=== PATIENT | female | born 1940 | race Caucasian/White ===

== ENCOUNTER 2023-05-26 18:32 | Inpatient (IN) | payer MEDICARE, BC ==
[~2023-05-26] VITALS: Ht 144.8 cm; Wt 53.5 kg
[2023-05-26] MEDS: IV NS 0.9% 1,000 ML BAG IV ONE (19:00)
[2023-05-26 19:04] LABS: BASOPHILS # (AUTO) 0.1 K/uL (0.0-0.2); BASOPHILS % (AUTO) 1.1 % (0.0-2.0); EOSINOPHILS # (AUTO) 0.1 K/uL (0.0-0.7); EOSINOPHILS % (AUTO) 1.5 % (0.0-6.0); HEMATOCRIT 35 % (33-45); HEMOGLOBIN 11.8 g/dL (11.5-14.8); LYMPHOCYTES # (AUTO) 0.9 K/uL (0.8-4.8); LYMPHOCYTES % (AUTO) 13.2 % (20.0-44.0); MEAN CORPUSCULAR HEMOGLOBIN 33 PG (26.0-33.0); MEAN CORPUSCULAR HGB CONC 34 g/dl (31.0-36.0); MEAN CORPUSCULAR VOLUME 97 fL (82-100); MONOCYTES # (AUTO) 0.6 K/uL (0.1-1.30); MONOCYTES % (AUTO) 8.6 % (2.0-12.0); NEUTROPHILS # (AUTO) 5.3 K/uL (1.8-8.9); NEUTROPHILS % (AUTO) 75.6 % (43.0-81.0); PLATELET COUNT (AUTO) 132 K/uL (150-450); RED BLOOD CELL COUNT(AUTO) 3.64 MIL/uL (4.0-5.2)
[2023-05-26 19:19] LABS: CALCIUM, SERUM 9.4 mg/dL (8.5-10.1); CARBON DIOXIDE 28 mmol/L (21-32); CHLORIDE 94 mmol/L (98-107); CREATININE 1.1 mg/dL (0.6-1.3); GLUCOSE 127 mg/dL (74-106); POTASSIUM 4.1 mmol/L (3.5-5.1); SODIUM SERUM 130 mmol/L (136-145); UREA NITROGEN, BLOOD 23 mg/dL (7-18)
[2023-05-26 19:25] LABS: ALANINE AMINOTRANSFERASE 9 U/L (12-78); ALBUMIN 3.8 g/dL (3.4-5.0); ALKALINE PHOSPHATASE 44 U/L (46-116); ASPARTATE AMINOTRANSFERASE 15 U/L (15-37); BILIRUBIN,DIRECT 0.1 mg/dL (0.0-0.2); BILIRUBIN,TOTAL 0.4 mg/dL (0.2-1.0); TOTAL PROTEIN, SERUM 7.2 g/dL (6.4-8.2)
[2023-05-26 19:31] LABS: INR 1.07 (0.91-1.10); PARTIAL THROMBOPLASTIN TIME 24.8 SEC (24.3-34.3); PROTHROMBIN TIME 11.3 SECS (9.2-11.1)
[2023-05-26] MEDS ORDERED: MAGNESIUM HYDROXIDE 30 ML UDC PO PRN (22:00)
[2023-05-26] MEDS ORDERED: HYDROCODONE/APAP 5/325MG TABLET PO PRN (22:00)
[2023-05-26] MEDS ORDERED: ACETAMINOPHEN 325 MG TABLET PO PRN (22:00)
[2023-05-26] MEDS ORDERED: Z GUARD REMEDY 4 OZ OINT TP PRN (22:00)
[2023-05-26] MEDS ORDERED: MORPHINE SULFATE INJ 2 MG/ML DISP.SYRIN IV PRN (22:00)
[2023-05-26] MEDS ORDERED: ONDANSETRON HCL/PF 4 MG/2 ML VIAL IVP PRN (22:00)
[2023-05-26] MEDS ORDERED: TEMAZEPAM 15 MG CAPSULE PO PRN (22:00)
[2023-05-26] MEDS ORDERED: MAG HYDROX/AL HYDROX/SIMETH 30 ML UDC PO PRN (22:00)
[2023-05-26 22:30] VITALS: BP_SYST 158; BP_SYST 171; BP_DIAS 92; BP_DIAS 93; TEMP 97.9; O2SAT 98
[2023-05-26] MEDS: IV NS 0.9% 1,000 ML IV PRN (22:59)
[2023-05-27] VITALS: BP 130/75; TEMP 98.4; O2SAT 96
[2023-05-27 07:00] VITALS: BP 184/88; TEMP 98.6; O2SAT 96
[2023-05-27 07:07] LABS: BASOPHILS % (AUTO) 0.3 % (0.0-2.0); EOSINOPHILS # (AUTO) 0.1 K/uL (0.0-0.7); EOSINOPHILS % (AUTO) 1.6 % (0.0-6.0); HEMATOCRIT 33 % (33-45); HEMOGLOBIN 11.3 g/dL (11.5-14.8); LYMPHOCYTES # (AUTO) 0.8 K/uL (0.8-4.8); LYMPHOCYTES % (AUTO) 19.4 % (20.0-44.0); MEAN CORPUSCULAR HEMOGLOBIN 33 PG (26.0-33.0); MEAN CORPUSCULAR HGB CONC 34 g/dl (31.0-36.0); MEAN CORPUSCULAR VOLUME 96 fL (82-100); MONOCYTES # (AUTO) 0.6 K/uL (0.1-1.30); MONOCYTES % (AUTO) 13.3 % (2.0-12.0); NEUTROPHILS # (AUTO) 2.7 K/uL (1.8-8.9); NEUTROPHILS % (AUTO) 65.4 % (43.0-81.0); PLATELET COUNT (AUTO) 117 K/uL (150-450); RED BLOOD CELL COUNT(AUTO) 3.45 MIL/uL (4.0-5.2); RED CELL DISTRIBUTION WIDTH 13.6 % (11.5-15.0); WHITE BLOOD COUNT (AUTO) 4.2 K/uL (4.3-11.0)
[2023-05-27 07:42] LABS: CALCIUM, SERUM 8.3 mg/dL (8.5-10.1); CARBON DIOXIDE 27 mmol/L (21-32); CHLORIDE 104 mmol/L (98-107); CREATININE 0.6 mg/dL (0.6-1.3); GLUCOSE 94 mg/dL (74-106); MAGNESIUM 2.1 mg/dL (1.8-2.4); PHOSPHORUS 3.7 mg/dL (2.5-4.9); POTASSIUM 3.7 mmol/L (3.5-5.1); SODIUM SERUM 137 mmol/L (136-145); UREA NITROGEN, BLOOD 12 mg/dL (7-18)
[2023-05-27 07:53] LABS: CHOLESTEROL 147 mg/dL (<200); HDL CHOLESTEROL 70 mg/dL (40-60); LDL 59 mg/dL (0-99); THYROID STIMULATING HORMONE 1.301 uIU/mL (0.358-3.74); TRIGLYCERIDES 77 mg/dL (30-150)
[2023-05-27] MEDS: PANTOPRAZOLE 40 MG TABLET.DR PO SCH (09:35)
[2023-05-27] MEDS ORDERED: ACET-868 PO (09:56)
[2023-05-27] MEDS ORDERED: FOLI0.4T6 PO (09:56)
[2023-05-27] MEDS ORDERED: CARB1TAB21 PO (09:56)
[2023-05-27] MEDS ORDERED: HYDR-4077 PO ×2 (09:56)
[2023-05-27] MEDS ORDERED: SOLI5TAB7 PO (09:56)
[2023-05-27] MEDS ORDERED: LOSA50TA39 PO (09:56)
[2023-05-27] MEDS ORDERED: POLY15DR40 EACHEYE (09:56)
[2023-05-27] MEDS ORDERED: METH2.5T14 PO (09:56)
[2023-05-27] MEDS ORDERED: CARV25TA2 PO (09:56)
[2023-05-27] MEDS ORDERED: ACETAMINOPHEN 325 MG TABLET PO PRN (11:00)
[2023-05-27] MEDS: hydrALAZINE HCL 50 MG TABLET PO SCH (11:16)
[2023-05-27] MEDS: LOSARTAN POTASSIUM 50 MG TABLET PO SCH (11:16)
[2023-05-27] MEDS: CARVEDILOL 12.5 MG TABLET PO SCH (11:17)
[2023-05-27 11:34] VITALS: BP 166/82; TEMP 98.4; O2SAT 95
[2023-05-27 13:03] LABS: THYROID STIMULATING HORMONE 1.321 uIU/mL (0.358-3.74)
[2023-05-27] MEDS: POLYVINYL ALCOHOL 15 ML BOTTLE EACHEYE SCH (13:46)
[2023-05-27 16:00] VITALS: BP 176/91; TEMP 98.4; O2SAT 99
[2023-05-27 20:21] VITALS: BP 155/88; TEMP 98.4; O2SAT 98
[2023-05-27] MEDS ORDERED: SOLIFENACIN SUCCINATE 5 MG PO SCH (22:00)
[2023-05-28 00:16] VITALS: BP 157/88; TEMP 98.4; O2SAT 96
[2023-05-28] MEDS: hydrALAZINE HCL 50 MG TABLET PO PRN (04:14)
[2023-05-28 04:15] VITALS: BP 184/87; TEMP 98.8; O2SAT 96
[2023-05-28 06:56] LABS: BASOPHILS % (AUTO) 0.3 % (0.0-2.0); EOSINOPHILS # (AUTO) 0.1 K/uL (0.0-0.7); EOSINOPHILS % (AUTO) 1.8 % (0.0-6.0); HEMATOCRIT 35 % (33-45); HEMOGLOBIN 12.3 g/dL (11.5-14.8); LYMPHOCYTES # (AUTO) 0.7 K/uL (0.8-4.8); LYMPHOCYTES % (AUTO) 11.9 % (20.0-44.0); MEAN CORPUSCULAR HEMOGLOBIN 33 PG (26.0-33.0); MEAN CORPUSCULAR HGB CONC 35 g/dl (31.0-36.0); MEAN CORPUSCULAR VOLUME 96 fL (82-100); MONOCYTES # (AUTO) 0.6 K/uL (0.1-1.30); MONOCYTES % (AUTO) 10.1 % (2.0-12.0); NEUTROPHILS # (AUTO) 4.3 K/uL (1.8-8.9); NEUTROPHILS % (AUTO) 75.9 % (43.0-81.0); PLATELET COUNT (AUTO) 122 K/uL (150-450); RED BLOOD CELL COUNT(AUTO) 3.69 MIL/uL (4.0-5.2); RED CELL DISTRIBUTION WIDTH 14.1 % (11.5-15.0); WHITE BLOOD COUNT (AUTO) 5.7 K/uL (4.3-11.0)
[2023-05-28 07:25] LABS: CALCIUM, SERUM 8.2 mg/dL (8.5-10.1); CARBON DIOXIDE 26 mmol/L (21-32); CHLORIDE 105 mmol/L (98-107); CREATININE 0.5 mg/dL (0.6-1.3); GLUCOSE 102 mg/dL (74-106); MAGNESIUM 2.1 mg/dL (1.8-2.4); PHOSPHORUS 2.8 mg/dL (2.5-4.9); POTASSIUM 3.5 mmol/L (3.5-5.1); SODIUM SERUM 136 mmol/L (136-145); UREA NITROGEN, BLOOD 7 mg/dL (7-18)
[2023-05-28 08:11] LABS: FOLIC ACID > 20.0 ng/mL (>3.0)
[2023-05-28] MEDS: FOLIC ACID 1 MG TABLET PO SCH (08:28)
[2023-05-28 08:30] VITALS: BP 184/91; TEMP 98.8; O2SAT 97
[2023-05-28 08:50] VITALS: BP_SYST 149; BP_SYST 151; BP_SYST 153; BP_DIAS 72; BP_DIAS 85; BP_DIAS 91; O2SAT 97
[2023-05-28 10:18] VITALS: BP 143/75
[2023-05-28] MEDS: VALSARTAN 80 MG TABLET PO SCH (10:18)
[2023-05-28] MEDS ORDERED: VALS160T2 PO (11:13)
== END 2023-05-28 17:30 | disposition home or self-care (01) | DRG 74 ==
LOC: ER 19:10 → TELE 22:01
PROVIDERS: ADMIT Nurse Practitioner Acute Care; ATTEND Nurse Practitioner Family
DX: G90.8 Other disorders of autonomic nervous system (principal); G90.3 Multi-system degeneration of the autonomic nervous system; E87.1 Hypo-osmolality and hyponatremia; N17.9 Acute kidney failure, unspecified; E86.0 Dehydration; F02.A0 Dementia in other diseases classified elsewhere, mild, without behavioral disturbance, psychotic disturbance, mood disturbance, and anxiety; G20.A1 Parkinson's disease without dyskinesia, without mention of fluctuations; I10 Essential (primary) hypertension; E86.1 Hypovolemia; E86.9 Volume depletion, unspecified; Z86.73 Personal history of transient ischemic attack (TIA), and cerebral infarction without residual deficits; E78.5 Hyperlipidemia, unspecified; M19.90 Unspecified osteoarthritis, unspecified site; Z98.890 Other specified postprocedural states; M89.8X9 Other specified disorders of bone, unspecified site; Z87.891 Personal history of nicotine dependence; D64.9 Anemia, unspecified; Z79.899 Other long term (current) drug therapy; R79.89 Other specified abnormal findings of blood chemistry
CPT/HCPCS: 36415; 70450-TC; 71045-TC; 80048-TC; 80061-TC; 80076-TC; 82607-TC; 83735-TC; 83921; 84100-TC; 84439-TC; 84443-TC; 84484-TC; 85025-TC; 85730-TC; 93307-TC; 97110-TC; 97116-TC; 97530-TC; A4223; G0378; J7030